=== PATIENT | male | born 1950 | race Caucasian/White ===

== ENCOUNTER 2017-07-18 00:15 | Observation (INO) ==
[2017-07-18] MEDS ORDERED: ONDANSETRON 4 MG/2 ML VIAL IV ONE (00:39)
[2017-07-18] MEDS ORDERED: 0.9 % SODIUM CHLORIDE 1,000 ML IV ONE (00:39)
--- NOTE | 2017-07-18 00:43 | Emergency Department Note ---
Abdominal Pain HPI - General Chief Complaint: Flank Pain Stated Complaint: flank pain Time Seen by Provider: 07/18/17 00:25 Source: patient Mode of arrival: wheelchair Limitations: no limitations - History of Present Illness HPI Narrative: 67-year-old male who had lithotripsy performed by Dr. Trejo 5 days ago. On 07/13. They she has been having some intermittent pain but this evening had increased pain as an 8/10. Patient states he is on some pain medications but they are not helping. As urgency frequency or dysuria. Main complaint is of the flank painon the right nausea but no vomiting. also complaining of no bm x 5 days after surgery - Related Data Home Medications Medication Instructions Recorded Confirmed allopurinol 100 mg tablet 300 mg PO QID tab 03/02/17 07/09/17 aspirin 81 mg tablet,delayed 81 mg PO QID tab 03/02/17 07/09/17 release cholecalciferol (vitamin D3) 1,000 2,000 unit PO BID 03/02/17 07/09/17 unit tablet duloxetine 60 mg capsule,delayed 60 mg PO QID cap 03/02/17 07/09/17 release fenofibric acid (choline) 135 mg 135 mg PO QID cap 03/02/17 07/09/17 capsule,delayed release metformin ER 500 mg 500 mg PO BID tab 03/02/17 07/09/17 tablet,extended release 24 hr [id number]-ckozojkg-eppvbn 1 tab PO DAILY 03/02/17 07/09/17 omega-3 fatty acids capsule 1,200 mg PO QID 03/02/17 07/09/17 tamsulosin 0.4 mg capsule 0.4 mg PO QDAY 03/02/17 07/09/17 valsartan 160 mg tablet 160 mg PO QID tab 03/02/17 07/09/17 atorvastatin 40 mg tablet 40 mg PO QDAY 04/05/17 07/09/17 lorazepam 1 mg tablet See Label Instructions PO qhs tab 04/05/17 07/09/17 temazepam 15 mg capsule 15 mg PO QDAY cap 04/05/17 07/09/17 calcium carbonate 500 mg calcium 500 mg PO ONCE tab 06/15/17 07/09/17 (1,250 mg) tablet Allergies Allergy/AdvReac Type Severity Reaction Status Date / Time No Known Drug Allergies Allergy Verified 07/18/17 00:20 Review of Systems All systems ED: reviewed and negative except as stated. Gastrointestinal: Reports: as per HPI, abdominal pain (severe right flank pain) Genitourinary: Reports: as per HPI. Denies: urgency, dysuria, frequency Abdominal Pain PMH - Past Medical History Surgical history ED: Reports: other (ENT,, right knee, shoulder, tonsillectomy) - Social History Smoking status: Never smoker Alcohol use: Reports: None Drug use: Reports: none Physical Exam - General Limitations: no limitations General appearance: alert - Head Head exam: atraumatic - Eye Eye exam: Present: normal appearance, PERRL, EOMI - ENT ENT exam: normal exam, normal oropharynx - Neck Neck exam: Present: normal inspection, full ROM, trachea midline - Chest Chest inspection: Present: normal inspection, symmetric chest wall rise. Absent : tenderness - Respiratory Respiratory exam: Present: normal lung sounds bilaterally. Absent: respiratory distress, wheezes - Cardiovascular Cardiovascular exam: Present: regular rate, normal rhythm. Absent: bradycardia , tachycardia, irregular rhythm - Abdominal Exam Abdominal exam: Present: soft, tenderness, normal bowel sounds. Absent: distention, guarding, rebound, rigidity Abdominal tenderness: Present: RLQ (tender in rlq but no guarding or rebound, some r cva pain) - exam: Present: normal inspection. Absent: testicular tenderness - Back Exam Back exam: Present: CVA tenderness (R) - Neurological Exam Neurological exam: Present: alert, oriented X3, CN II-XII intact - Psychiatric Psychiatric exam: Present: normal affect, normal mood Course Vital Signs Temperature 97.9 F 07/18/17 00:15 Pulse Rate 80 07/18/17 00:15 Respiratory Rate 20 07/18/17 00:15 Blood Pressure 138/91 07/18/17 00:15 Pulse Oximetry (%) 98 07/18/17 00:15 Temperature 97.9 F 07/18/17 00:15 Pulse Rate 80 07/18/17 00:15 Respiratory Rate 20 07/18/17 00:15 Blood Pressure 138/91 07/18/17 00:15 Pulse Oximetry (%) 98 10 00:15 Abdominal Pain - MDM Narrative Medical decision making narrative: wbc is 9,600. cr was 2.[address]. ct show 8 mm stone in bladder mild tpo moderate hydronephrosis. had lithrotri[psy [address] show slightly increase appendix 9-10 mm but no stranding. Dr Deleon consulted and patient to be admitted, put on zosyn. will repeat creatinine tomorrow before ct is ordered by Dr Deleon . Dr Deleon to follow.. - Lab Data Result diagrams: 07/18/17 00:40 Lab Results 07/18/17 07/18/17 07/18/17 Range/Units 00:40 00:40 00:40 WBC 9.6 (4.5-11.0) K/mcL RBC 4.81 (4.50-5.90) M/mcL Hgb 15.0 (13.5-16.5) g/dL Hct 44.9 (41.0-55.0) % POC Hct 45.0 (41.0-55.0) % MCV 93.3 (80.0-100.0) fL MCH 31.2 (26.0-34.0) pg MCHC 33.5 (31.0-36.0) g/dL RDW 13.7 (11.5-14.5) % Plt Count 293 (140-440) K/mcL MPV 8.3 (7.4-10.4) fL Gran % 74.0 (38.0-78.0) % Lymph % (Auto) 12.8 L (15.5-49.0) % Crowley % (Auto) 11.0 (1.0-12.0) % Eos % (Auto) 1.9 (0.0-7.0) % Baso % (Auto) 0.3 (0.0-2.0) % Gran # 7.1 (1.8-8.0) K/mcL Lymph # (Auto) 1.2 L (1.5-4.8) K/mcL Crowley # (Auto) 1.1 H (0.1-0.9) K/mcL Eos # (Auto) 0.2 (0.0-0.7) K/mcL Baso # (Auto) 0 (0.0-0.3) K/mcL Band Neutrophils % Not Reportable POC Sodium 135 (133-145) mmol/L POC Potassium 3.9 (3.3-5.1) mmol/L POC Chloride 96 (96-108) mmol/L POC Total CO2 30 (22-30) mmol/L POC BUN 29 H (8-23) mg/dl POC Creatinine 2.5 H (0.7-1.2) mg/dl POC Glucose 167 H (70-105) mg/dL POC WB Ioniz Calcium 1.26 (1.16-1.32) mmol/L Disposition Pt seen by [facility]/PA only: No Clinical Impression: Right lower quadrant abdominal pain Disposition: Xfer As Outpt/Obs ([facility]) Referrals: Ish Nunes DO [Primary Care Provider] - Time of Disposition: 02:01
[2017-07-18] MEDS: HYDROmorphone 2 MG/ML SYRINGE IV PRN ×5 (00:46→20:51)
[2017-07-18 01:32] LABS: Basophils # (Auto) 0 K/mcL (0.0-0.3); Basophils % (Auto) 0.3 % (0.0-2.0); Eosinophils # (Auto) 0.2 K/mcL (0.0-0.7); Eosinophils % (Auto) 1.9 % (0.0-7.0); Lymphocytes # (Auto) 1.2 K/mcL (1.5-4.8); Lymphocytes % (Auto) 12.8 % (15.5-49.0); Mean Cell Volume 93.3 fL (80.0-100.0); Mean Corpuscular HGB Conc 33.5 g/dL (31.0-36.0); Mean Corpuscular Hemoglobin 31.2 pg (26.0-34.0); Monocytes # (Auto) 1.1 K/mcL (0.1-0.9); Platelet Count 293 K/mcL (140-440); RBC 4.81 M/mcL (4.50-5.90); Red Cell Distribution Width 13.7 % (11.5-14.5)
[2017-07-18] MEDS ORDERED: PIPERACILLIN SODIUM/TAZOBACTAM 3.375 GM in DEXTROSE 5% IN WATER 50 ML IV ONE (01:40)
[2017-07-18] MEDS ORDERED: ONDANSETRON 4 MG/2 ML VIAL IV PRN (01:50)
[2017-07-18] MEDS: 0.9 % SODIUM CHLORIDE 1,000 ML IV SCH ×3 (02:01→22:22)
[2017-07-18 02:13] LABS: Band Neutrophils % 3 % (0-10); Eosinophils % (Manual) 4 % (0-7); Lymphocytes % 12 % (15-49); Monocytes % (Manual) 8 % (1-12); Platelet Estimate NORMAL (NORMAL); RBC Morphology NORMAL (NORMAL); Segmented Neutrophils % 71 % (38-78)
[2017-07-18] MEDS: PIPERACILLIN SODIUM/TAZOBACTAM 3.375 GM in DEXTROSE 5% IN WATER 50 ML IV SCH ×4 (02:52→22:22)
--- NOTE | 2017-07-18 08:49 | Cat Scan Report ---
CLINICAL INFORMATION: Reason for Exam:recent lithotripsy right, 5 d ago, increase pain COMPARISON: None. TECHNIQUE: The abdomen was imaged without oral or IV contrast, scanning from the diaphragm to the symphysis pubis. Sagittal and coronal reformats were created. FINDINGS: Evaluation the abdominal organs without contrast is limited. There may be mild fatty infiltration liver. The liver is normal in size and homogeneous. The gallbladder and bile ducts are normal. The spleen, pancreas and adrenals are normal. There are two contiguous calyceal stones laterally in the middle third of the right kidney. The larger measures 3 mm. There is also a 1 mm calcification within an infundibulum in the central portion of the right kidney. No left-sided kidney stone is present. There are bilateral renal cysts. The largest is an exophytic cyst arising from the lower pole of the right kidney which measures 5.1 cm. There is mild hydronephrosis in right kidney. Right ureter is larger than the left and there stranding of the periureteral fat. The right ureter measures up to 7.6 mm in diameter. There is no retroperitoneal hemorrhage or urinoma. At the tip of the right ureterovesical junction, protruding into the lumen of the bladder there is a 3 x 5 x 7 mm calculus. This is close to but may not have completely passed through the ureter. The left ureter is normal. The bladder is decompressed. Large amount stool is present in the right side of the colon. A moderate amount of fluid in nondilated small intestine. There are couple air-fluid levels in the small intestine. The appendix is elongated. The mid segment is mildly thickened and measures up to 12 mm in width. There are the cecum, the appendix measures 4 mm. No stone is seen within the appendix and there is no surrounding inflammation or abscess. No ascites, abscess or adenopathy are present within the abdomen or pelvis. There are scattered plaques along the wall of the aorta. There is degenerative disc disease and arthritis in the lumbar spine with the greatest degeneration at L4-5 and L5-S1. IMPRESSION: 3 x 5 x 7 mm calculus in the right side of the bladder at the level of the ureteral vesicle junction with associated mild right-sided hydronephrosis. This stone may be lodged in the ureterovesical junction. Small nonobstructing calyceal stones in the right kidney Thickened but noninflamed appendix Interpreted and Authenticated by: Shailesh Toro/8/17
[2017-07-18 12:13] LABS: Basophils # (Auto) 0 K/mcL (0.0-0.3); Basophils % (Auto) 0.3 % (0.0-2.0); Eosinophils # (Auto) 0.2 K/mcL (0.0-0.7); Eosinophils % (Auto) 2.5 % (0.0-7.0); Granulocytes % (Auto) 68.8 % (38.0-78.0); Lymphocytes # (Auto) 1.2 K/mcL (1.5-4.8); Lymphocytes % (Auto) 15.7 % (15.5-49.0); Mean Cell Volume 94.1 fL (80.0-100.0); Monocytes # (Auto) 0.9 K/mcL (0.1-0.9); Monocytes % (Auto) 12.7 % (1.0-12.0); Platelet Count 251 K/mcL (140-440); RBC 4.21 M/mcL (4.50-5.90); Red Cell Distribution Width 14.1 % (11.5-14.5)
--- NOTE | 2017-07-18 13:17 | General Surg History&Physical ---
History of Present Illness Patient information: Note initiated : 07/18/17 at 1:14 pm Service Date, if different from initiated Date: [] Patient: Gareth Marte 67 y/o M admitted on 07/18/17 for flank pain. Chief Complaint: [] HPI: Mr. Marte is a 67 year old M with 5 day history of right flank and suprapubic pain. The patient is 5 days status post lithotripsy for stone disease by Dr. Trejo 13 July. He has had pain since that time. He has been taken narcotic analgesics which relieved his pain somewhat but the pain became much worse. Because of the narcotic analgesics he has not had a bowel movement for 5 days and he has developed nausea. He was seen in the emergency room late last evening and CT scan showed evidence of significant constipation but he also has a UVJ stone that is obstructing his right ureter and causing mild hydronephrosis. He also has mild tissue edema around the right ureter. There is marked stool in the colon which is more prominent on the right than on the left. There is some question about appendiceal dilation but there is no other findings to suggest appendicitis. There is no periappendiceal edema and there is gas in the appendix. There is no appendicolith. Most of the patient's problems are related to his UVJ stone but Dr. Trejo will not be available until tomorrow. He is admitted and I will take care of his constipation and will notify Dr. Trejo of his status. He can have cystoscopy with stone extraction tomorrow. He does have elevated BUN and creatinine which is related to his ureteral obstruction. Review of Systems - EENT Nose, mouth and throat: no dizziness, no dysphagia, no hoarseness, no vertigo - Cardiovascular other (Obstructive sleep apnea), no chest pain with activity, no dyspnea on exertion, no edema, no palpatations, no syncope - Respiratory dyspnea on exertion, snoring, no wheezing, no stridor - Gastrointestinal abdominal pain, bloating, constipation, cramping, nausea, no vomiting - Genitourinary flank pain, no dysuria, no urinary frequency, no urinary hesitancy - Musculoskeletal arthralgias, myalgias, stiffness - Integumentary no changing lesions, no pruritus, no rash - Neurological no abnormal hearing, no confusion, no dizziness, no headache(s), no syncope, no weakness - Psychiatric anxiety, depression - Endocrine no fatigue, no polydipsia, no polyphagia - Hematologic/Lymphatic no easy bleeding, no easy bruising, no lymphadenopathy - Allergic/Immunologic no tongue swelling, no throat swelling, no uticaria, no wheezing, no lip swelling Past History Past medical history: Bilateral kidney stones Benign prostatic hypertrophy Anxiety disorder Hypertension Peripheral neuropathy Diabetes mellitus Chronic obstructive sleep apnea-- CPAP dependent Past surgical history: Rhinoplasty due to traumatic nose fracture Right hand surgery with tendon repair Right knee arthroscopy for torn meniscus Rotator cuff repair left shoulder Past family history: Coronary artery disease Cerebral aneurysm Past social history: Never tobacco use Never drug use Occasional alcohol use Medications and Allergies Home Medications Medication Instructions Recorded Confirmed Type allopurinol 100 mg tablet 300 mg PO QDAY tab 03/02/17 07/18/17 History aspirin 81 mg tablet,delayed 81 mg PO QDAY tab 03/02/17 07/18/17 History release cholecalciferol (vitamin D3) 1,000 2,000 unit PO BID 03/02/17 07/18/17 History unit tablet duloxetine 60 mg capsule,delayed 60 mg PO QHS cap 03/02/17 07/18/17 History release fenofibric acid (choline) 135 mg 135 mg PO QDAY cap 03/02/17 07/18/17 History capsule,delayed release metformin ER 500 mg 500 mg PO BID tab 03/02/17 07/18/17 History tablet,extended release 24 hr nutxlaumkuri-jtdijkna-bwwbry 1 tab PO DAILY 03/02/17 07/18/17 History omega-3 fatty acids capsule 1,200 mg PO QDAY 03/02/17 07/18/17 History tamsulosin 0.4 mg capsule 0.4 mg PO QDAY 03/02/17 07/18/17 History valsartan 160 mg tablet 160 mg PO QHS tab 03/02/17 07/18/17 History atorvastatin 40 mg tablet 40 mg PO QHS 04/05/17 07/18/17 History lorazepam 1 mg tablet 1.5 mg PO qhs tab 04/05/17 07/18/17 History temazepam 15 mg capsule 30 mg PO QHS cap 04/05/17 07/18/17 History calcium carbonate 500 mg calcium 500 mg PO BID tab 06/15/17 07/18/17 History (1,250 mg) tablet Allergies Allergy/AdvReac Type Severity Reaction Status Date / Time No Known Drug Allergies Allergy Verified 07/18/17 00:20 Exam Temp Pulse Resp BP Pulse Ox 97.6 F 70 15 119/76 95 07/18/17 11:22 07/18/17 11:22 07/18/17 11:22 07/18/17 11:22 07/18/17 11:22 - General physical appearance well developed, well nourished, no distress, obese - Eyes PERRL, normal ocular movement - ENT normal pinna, normal nares, normal mucosa, no hearing loss, no congestion - Head Head exam IM: Present: atraumatic, normocephalic - Neck no masses, no bruits, trachea midline, no lymphadectomy, no venous distension - Cardiovascular Cardiovascular exam IM: Present: normal rate and rhythm, RRR, +S1, +S2. Absent : gallop, JVD, systolic murmur - Respiratory normal expansion, normal respiratory effort, clear to percussion, clear to auscultation - Abdomen Abdomen: Present: soft, non tender, bowel sounds, distended (Distended abdomen with mild suprapubic tenderness; no right lower quadrant tenderness noted) Hernia: Present: none - Genitourinary Present: normal penis with no external lesions - Integumentary Present: no rash, no growths, no abnormal pigmentation - Neurologic Present: normal coordination, normal sensation - Musculoskeletal Present: normal gait, normal posture - Psychiatric Present: oriented to time, oriented to person, oriented to place, speech is normal, memory intact Assessment and Plan (1) Ureteral stone with hydronephrosis Continue IV hydration Notified Dr. Trejo of the patient's presence in the hospital N.p.o. after midnight Continue antibiotic coverage Status: Acute (2) Therapeutic opioid-induced constipation (OIC) Relistor 12 mg subcu daily 3 Milk of magnesia 30 cc every 6 hours 3 doses Full liquid diet Status: Acute (3) Acute renal injury Recheck renal panel in the morning Status: Acute (4) Chronic intermittent hypoxia with obstructive sleep apnea Continue CPAP therapy while hospitalized Status: Acute (5) Hypertension Continue home medications Status: Acute (6) Type 2 diabetes mellitus with diabetic neuropathy Continue home medications Accu-Chek every 6 SSI coverage as needed Status: Chronic
[2017-07-18] MEDS: MAGNESIUM HYDROXIDE 30 ML ORAL.SUSP PO SCH ×2 (14:16→19:18)
[2017-07-18] MEDS: METHYLNALTREXONE BROMIDE 12 MG/0.6 ML SYRINGE SQ SCH (15:38)
[2017-07-18] MEDS: metFORMIN 500 MG TAB.XL.24H PO SCH (20:50)
[2017-07-18] MEDS: INSULIN LISPRO 1 UNIT/0.01 ML UNIT SQ SCH (20:50)
[2017-07-18] MEDS ORDERED: TEMAZEPAM 15 MG CAPSULE PO SCH (21:00)
[2017-07-18] MEDS ORDERED: LOSARTAN 50 MG TABLET PO SCH (21:00)
[2017-07-18] MEDS ORDERED: DULoxetine 30 MG CAPSULE PO SCH (21:00)
[2017-07-18] MEDS ORDERED: LORazepam 0.5 MG TABLET PO SCH (21:00)
[2017-07-19] MEDS: MAGNESIUM HYDROXIDE 30 ML ORAL.SUSP PO SCH (01:42)
[2017-07-19 05:25] LABS: Basophils # (Auto) 0 K/mcL (0.0-0.3); Basophils % (Auto) 0.6 % (0.0-2.0); Eosinophils # (Auto) 0.3 K/mcL (0.0-0.7); Granulocytes % (Auto) 66.8 % (38.0-78.0); Lymphocytes # (Auto) 1.2 K/mcL (1.5-4.8); Lymphocytes % (Auto) 17.7 % (15.5-49.0); Mean Cell Volume 93.1 fL (80.0-100.0); Mean Corpuscular HGB Conc 34.4 g/dL (31.0-36.0); Monocytes # (Auto) 0.7 K/mcL (0.1-0.9); Monocytes % (Auto) 10.9 % (1.0-12.0); Platelet Count 257 K/mcL (140-440); RBC 4.17 M/mcL (4.50-5.90); Red Cell Distribution Width 13.5 % (11.5-14.5)
[2017-07-19 05:27] LABS: ALT/SGPT 12 U/l (0-40); Albumin 3.6 gm/dL (3.2-5.2); Albumin/Globulin Ratio 1.2 (1.0-2.3); Alkaline Phosphatase 31 U/L (39-117); Bilirubin,Direct < 0.2 mg/dL (0.0-0.3); Blood Urea Nitrogen 24 mg/dl (8-23); Gamma Glutamyl Transpeptidase 34 U/L (8-61); Magnesium 2.6 mg/dL (1.6-2.5); Uric Acid 4.1 mg/dL (2.5-8.0)
[2017-07-19] MEDS: metFORMIN 500 MG TAB.XL.24H PO SCH (07:50)
[2017-07-19] MEDS: INSULIN LISPRO 1 UNIT/0.01 ML UNIT SQ SCH (07:51)
--- NOTE | 2017-07-19 08:15 | Consultation ---
DATE OF CONSULTATION: 07/19/2017 HISTORY OF PRESENT ILLNESS: The patient is a 67-year-old gentleman who underwent lithotripsy on 07/13/2017. This was on the right side. He did have severe pain. He was seen in the emergency room on Wednesday where he was diagnosed with possible appendicitis. Dr. Deleon kindly consulted and admitted the patient. It appears that he had right-sided pain, and he did show a 5 mm stone at the right UVJ. There was some hydronephrosis, but did have nausea. He was also constipated. Dr. Deleon again kindly admitted the patient, did put him on a bowel program and last night did have a bowel movement. He is feeling much better today. There are some small stone fragments in his right kidney, but most of the stone fragments are down in the ureter. He denies any fevers or chills. He presents now for evaluation. REVIEW OF SYSTEMS: A complete review of systems was reviewed from Dr. Deleon's note on 07/18/2017. Please see that dictation. There have been no changes. PAST MEDICAL HISTORY: Kidney stones, BPH, anxiety disorder, peripheral neuropathy, diabetes, CPAP-dependent. PAST SURGICAL HISTORY: Rhinoplasty, ESWL, rotator cuff repair. FAMILY HISTORY: Coronary artery disease. SOCIAL HISTORY: , does not smoke and does not drink. CURRENT MEDICATIONS: As per nurse's notes. PHYSICAL EXAMINATION: GENERAL: This is a very pleasant gentleman in no apparent distress. HEENT: Atraumatic, normocephalic. Extraocular movements are intact. Pupils equal and reactive to light and accommodation. Nose is normal. Normal mucosa. NECK: Supple. Trachea is in the midline. HEART: Regular rate and rhythm. LUNGS: Clear to auscultation. ABDOMEN: Soft, nontender. No right lower tenderness, hernias none. GENITOURINARY: Normal. EXTREMITIES: Without clubbing, cyanosis, or edema. NEUROLOGIC: Neurologically intact. IMPRESSION: The patient with a distal right stone. He may have passed this, is currently pain free. I would stop his antibiotics. We will also get a KUB to see where the stone is and proceed from there. I will let him eat and drink because these are small and should pass on their own. I have gone over this with the patient and with his and family and they understand. We will follow up throughout the day. Vilma Job ID: [id number] Doc ID: [id number] Brien Trejo MD
--- NOTE | 2017-07-19 08:25 | XRay Report ---
HISTORY: Reason for Exam:f/u right side stone FINDINGS: There is a large amount of bowel gas and stool overlying the right kidney. The 5.6 mm calculus seen on the prior x-ray done on 07/13/17 cannot be identified due to the overlying stool. I cannot determine whether not is still present are not. Above the right pubic bone and superimposed over the decompressed bladder, there is a rectangular 2.2 x 15.3 mm radiopaque structure which was not present on 07/13/17. There are several phleboliths in the lower pelvis which were present previously and remain stable. IMPRESSION: Nonvisualization of previously seen right side kidney stone. This may be obscured by bowel gas and stool. Rectangular structure in the right lower pelvis which may be a superimposed artifact or radiopaque material within the rectum Interpreted and Authenticated by: Shailesh Toro 07/19/17
--- NOTE | 2017-07-19 08:48 | Discharge Plan ---
Discharge Plan - Patient/Caregiver Discharge Instructions Activity: increase activity as tolerated Diet: Regular Diet Additional Instructions: follow up as scheduled - Follow up Plan Follow up with: Ish Nunes DO [Primary Care Provider] - Disposition: Home, Self-Care Prognosis: Good Rehab Potential: Good Overall status at discharge: patient is back to baseline
--- NOTE | 2017-07-19 08:51 | General Surgery Progress Note ---
Surgical - Auxillary Note - Subjective Patient Information: Note initiated : 07/19/17 at 8:48 am Service Date, if different from initiated Date: [] Patient: Gareth Marte 67 y/o M admitted on 07/18/17 for flank pain. Chief Complaint: [right flank pain pt without pain. appears stone has passed. will d/c to home.
[2017-07-19] MEDS ORDERED: TAMSULOSIN 0.4 MG CAPSULE PO SCH (09:00)
[2017-07-19] MEDS: 0.9 % SODIUM CHLORIDE 1,000 ML IV SCH (09:32)
[2017-07-19] MEDS: METHYLNALTREXONE BROMIDE 12 MG/0.6 ML SYRINGE SQ SCH (10:08)
== END 2017-07-19 10:25 | disposition home or self-care (01) ==
LOC: ED 00:15 → MEDSUR 00:15
PROVIDERS: ADMIT Family Medicine Adult Medicine; ATTEND Family Medicine Adult Medicine